=== PATIENT | female | born 1945 | race Asian ===

== ENCOUNTER 2019-04-15 20:33 | Emergency (ER) | payer MEDICARE, OTHER ==
[~2019-04-15] VITALS: Ht 160 cm; Wt 52.2 kg
[2019-04-15 20:40] VITALS: BP 212/118
--- NOTE | 2019-04-15 20:40 | NUR ---
ED Nurse Note: Patient brought into ED by RA from home c/o laceration on her upper left eyebrow S/P fall. Denies KO or any LOC. As per patient, she tripped on an rug. No SOB. Alert and oriented, verbally responisve.
[2019-04-15] MEDS ORDERED: Acetaminophen 500mg (ES) tab ORAL ONE (20:45)
[2019-04-15] MEDS ORDERED: Tetanus/Diptheria/Pertussis IM ONE (20:45)
--- NOTE | 2019-04-15 20:49 | NUR ---
ED Nurse Note: Patient taken for CT.
--- NOTE | 2019-04-15 21:05 | NUR ---
ED Nurse Note: Pt came back from CT. Not in any distress.
--- NOTE | 2019-04-15 21:16 | Emergency Room Report ---
History of Present Illness General Chief Complaint: Multiple Trauma/Fall Source: Patient Present Illness HPI This is 73-year-old [place] female with no past medical history. She presents with complaint of fall and head injury. She slipped on the carpet and fell and hit her head on the table. Sustained a laceration to her left forehead. No loss of consciousness. No other injury. Pain is 8 out of 10. Nothing made it better. Palpation made it worse. Denies any other complaint. No other injury. Allergies: Coded Allergies: No Known Allergies (Unverified , 04/15/19) Patient History Past Medical History: see triage record, old chart reviewed Past Surgical History: other Pertinent Family History: none Social History: Denies: smoking Last Menstrual Period: n/a Now: No Immunizations: other Reviewed Nursing Documentation: PMH: Agreed; PSxH: Agreed Nursing Documentation-PMH Past Medical History: No Stated History Review of Systems Eye: Denies: eye pain, blurred vision ENT: Denies: ear pain, nose congestion, throat swelling Respiratory: Denies: cough, shortness of breath Cardiovascular: Denies: chest pain, palpitations Gastrointestinal: Denies: abdominal pain, diarrhea, nausea, vomiting Musculoskeletal: Denies: back pain, joint pain Skin: Denies: rash Neurological: Denies: headache, numbness Endocrine: Denies: increased thirst, increased urine Hematologic/Lymphatic: Denies: easy bruising All Other Systems: negative except mentioned in HPI Physical Exam Vital Signs Date Time Temp Pulse Resp B/P (MAP) Pulse Ox O2 Delivery O2 Flow Rate FiO2 04/15/19 20:32 97.5 119 18 212/118 (149) 93 Room Air Vitals with tachycardia and hypertension Repeat blood pressure is 134/70 Sp02 EP Interpretation: reviewed, normal General Appearance: well appearing, no apparent distress, alert Head: normocephalic, other - Patient to the left forehead. No foreign body. Eyes: bilateral eye PERRL, bilateral eye EOMI ENT: hearing grossly normal, normal pharynx Neck: full range of motion, supple, no meningismus Respiratory: chest non-tender, lungs clear, normal breath sounds Cardiovascular #1: regular rate, rhythm, no murmur Gastrointestinal: normal bowel sounds, non tender, no mass, no organomegaly, no bruit, non-distended Musculoskeletal: back normal, normal range of motion, gait/station normal Psychiatric: mood/affect normal Procedures Laceration/Wound Repair Laceration/Wound Repair : Consent: Verbal Wound Location: head Wound's Depth, Shape: into muscle, linear Wound Length (cm): 3 Wound Explored: clean Irrigated w/ Saline (ccs): 1000 Betadine Prep?: Yes Anesthesia: 1% Lidocaine Volume Anesthetic (ccs): 5 Wound Repaired With: sutures Suture Size/Type: 4:0, proline Number of Sutures: 5 Patient Tolerated: Well Complications: None Medical Decision Making Diagnostic Impression: Primary Impression: Head injury, acute Qualified Codes: S09.90XA - Unspecified injury of head, initial encounter Additional Impression: Forehead laceration Qualified Codes: S01.81XA - Laceration without foreign body of other part of head, initial encounter ER Course Patient presents with a head injury and laceration. No evidence of any bleed or skull fracture. Will discharge home. CT/MRI/US Diagnostic Results CT/MRI/US Diagnostic Results : Imaging Test Ordered: CT head Impression Per radiologist negative Last Vital Signs Date Time Temp Pulse Resp B/P (MAP) Pulse Ox O2 Delivery O2 Flow Rate FiO2 04/15/19 20:40 119 18 Room Air 04/15/19 20:40 97.5 212/118 93 Status: improved Disposition: HOME, SELF-CARE Condition: Stable Scripts Ibuprofen* (MOTRIN*) 600 Mg Tablet 600 MG ORAL THREE TIMES A DAY, #30 TAB 0 Refills Prov: Dario Flores MD 04/15/19 Additional Instructions: Follow-up your doctor in 7 days. Suture out in 7 days. Return for any concern. Dario Flores MD Apr 15, 2019 21:16
[2019-04-15] MEDS ORDERED: IBUPROFEN600 MG ORAL (21:42)
--- NOTE | 2019-04-15 21:45 | Diagnostic Imaging Report ---
Indication: Head trauma headache Technique: Contiguous 5 mm thick transaxial imaging of the head obtained in a Siemens Sensation [address] scanner. Soft tissue and bone windows generated. Automatic Exposure Control was utilized. Total Dose length Product (DLP): 1380.[address] Dose Index Volume (CTDIvol): 60 mGy Comparison: none Findings: There is mild prominence of the ventricles, basal cisterns, and cerebral sulci consistent with atrophy. Mild, nonspecific, white matter hypoattenuation is noted throughout the brain consistent with chronic small vessel disease. There is no midline shift, edema, acute hemorrhage, mass effect, or abnormal extra-axial fluid collections. Bones are unremarkable. There is scalp laceration in the left frontal region. Thickening of the rousseau of the maxillary sinus noted. Impression: No acute intracranial bleed, mass effect or edema. Mild atrophy of the brain. Nonspecific white matter hypoattenuation probably due to chronic small vessel disease. Left frontal scalp laceration Signs of chronic sinusitis [facility] has communicated the preliminary results to the Emergency Department. Their findings are largely concordant with this report. The CT scanner at [facility] is accredited by the [employer] and the scans are performed using dose optimization techniques as appropriate to a performed exam including Automatic Exposure control.
[2019-04-15 21:54] VITALS: BP 128/74
--- NOTE | 2019-04-15 21:54 | NUR ---
ED Nurse Note: Pt cleared by ERMD for discharge. DC instructions/prescription was given and explained to pt and verbalized understanding of teachings. All medical deviecs such as ID band removed. Pt is AAO x4, ambulatory and left with all personal belongings. accompanied by
== END 2019-04-15 21:54 | disposition home or self-care (01) ==
LOC: EDBD 20:33 → EMR 21:00
DX: S01.81XA Laceration without foreign body of other part of head, initial encounter (principal); S09.90XA Unspecified injury of head, initial encounter; Z23 Encounter for immunization; I10 Essential (primary) hypertension; R00.0 Tachycardia, unspecified; W01.190A Fall on same level from slipping, tripping and stumbling with subsequent striking against furniture, initial encounter; Y92.9 Unspecified place or not applicable
CPT/HCPCS: 70450; 90471; 90715; 99284